=== PATIENT | male | born 1955 | race Hispanic/Latino ===

== ENCOUNTER 2023-12-10 22:04 | Emergency (ER) | payer OTHER ==
[2023-12-10] MEDS ORDERED: ACETAMINOPHEN 500 MG TAB ONE (23:47)
[2023-12-10 23:58] LABS: Absolute Basophils 0.1 K/uL (0-0.5); Absolute Eosinophils 0.1 K/uL (0-0.5); Absolute Lymphocytes (CBC) 1.7 K/uL (0.7-4.9); Absolute Monocytes 0.9 K/uL (0.1-1.3); Absolute Neutrophil 5.4 K/uL (1.8-8.0); Basophils % 0.7 % (0-1.3); Eosinophils % 1.5 % (0-4.4); Hematocrit 37.2 % (39.6-49.0); Lymphocytes % 20.5 % (15.3-44.8); MCH 29.7 pg (27.0-35.0); MCV 84.9 fL (80-100); MPV 8.6 fL (7.6-11.3); Monocytes % 10.9 % (3.3-12.3); Neutrophils % 66.4 % (41.7-73.7); Nucleated Red Blood Cells % 0.1 % (0-0); Platelets 132 thou/uL (152-406); RBC Red Blood Cell Count 4.38 M/uL (4.33-5.43)
[2023-12-11 00:03] LABS: SARS-CoV-2 Antigen CONTROL BLUE LINE VIS/BG OK; SARS-CoV-2 Antigen Rapid Res Positive (Negative)
[2023-12-11 00:13] LABS: Anion Gap 7.5 mEq/L (5.0-15.0); Potassium 3.5 mEq/L (3.5-5.1); Troponin High Sensitivity 13.2 pg/mL (<58.9)
--- NOTE | 2023-12-11 00:23 | ER ---
Nurse's Notes [facility] Name: Frank Cueto Age: 67 yrs Sex: Male : 1955 Arrival Date: 12/10/2023 Time: 22:04 Bed 18 Private MD: Diagnosis: SARS-associated coronavirus as the cause of diseases classified elsewhere Presentation: 12/09 23:08 Chief complaint: Patient states: c/o RUQ and LUQ pain. Denies n/v/d. Denies fever. me1 Coronavirus screen: Vaccine status: Patient reports receiving the 2nd dose of the covid vaccine. Ebola Screen: No symptoms or risks identified at this time. Initial Sepsis Screen: Does the patient meet any 2 criteria? No. Patient's initial sepsis screen is negative. Does the patient have a suspected source of infection? No. Patient's initial sepsis screen is negative. Risk Assessment: Do you want to hurt yourself or someone else? Patient reports no desire to harm self or others. Onset of symptoms was December 10, 2023. 23:08 Method Of Arrival: [place] [facility] Acuity: YOLANDA 3 me1 Triage Assessment: 23:10 General: Appears comfortable, well groomed, well developed, well nourished, Behavior is me1 calm, cooperative, appropriate for age. Pain: Complains of pain in right upper quadrant and left upper quadrant Pain does not radiate. Pain currently is 5 out of 10 on a pain scale. Quality of pain is described as sharp, Pain began 1 day ago. Is continuous. EENT: No signs and/or symptoms were reported regarding the EENT system. Neuro: Level of Consciousness is awake, alert, obeys commands, Oriented to person, place, time, situation, Appropriate for age. Cardiovascular: Patient's skin is warm and dry. Respiratory: Airway is patent Trachea midline Respiratory effort is even, unlabored, Respiratory pattern is regular, symmetrical. GI: Reports upper abdominal pain, Patient currently denies diarrhea, nausea, vomiting. : No signs and/or symptoms were reported regarding the genitourinary system. Derm: Skin is intact, is healthy with good turgor, Skin is pink, warm \T\ dry. Musculoskeletal: No signs and/or symptoms reported regarding the musculoskeletal system. Historical: - Allergies: 23:10 No Known Allergies; me1 - PMHx: 23:10 Diabetes mellitus; me1 - PSHx: 23:10 Left BKA; me1 - Immunization history:: Adult Immunizations up to date. - Infectious Disease History:: Denies. - Social history:: Smoking status: Patient reports the use of cigarette tobacco products, smokes one-half pack cigarettes per day. Screenin:12 [facility] ED Fall Risk Assessment (Adult) History of falling in the last 3 months, me1 including since admission No falls in past 3 months (0 pts) Confusion or Disorientation No (0 pts) Intoxicated or Sedated No (0 pts) Impaired Gait Yes (1 pt) Mobility Assist Device Used Yes (1 pt) Altered Elimination No (0 pt) Score/Fall Risk Level 0 - 2 = Low Risk Maintained a safe environment, Provided non-skid footwear, Hourly rounding (assess needs \T\ fall precautionary measures) done. Abuse screen: Denies threats or abuse. Nutritional screening: No deficits noted. Tuberculosis screening: No symptoms or risk factors identified. Assessment: 23:12 General: See triage assessment. . me1 08/04 00:00 General: Appears in no apparent distress. comfortable. Pain: Complains of pain in left jw7 upper quadrant and right upper quadrant Pain does not radiate. Pain currently is 2 out of 10 on a pain scale. Quality of pain is described as sharp, Pain began suddenly, Is continuous. Neuro: Level of Consciousness is awake, alert, obeys commands, Oriented to person, place, time, situation, Appropriate for age. Cardiovascular: Heart tones S1 S2 present Capillary refill < 3 seconds Clubbing of nail beds is absent JVD is absent Patient's skin is warm and dry. Respiratory: Airway is patent Trachea midline Respiratory effort is even, unlabored, Respiratory pattern is regular, symmetrical. GI: Abdomen is round non-distended, Bowel sounds present X 4 quads. Abd is soft and non tender X 4 quads. : No deficits noted. No signs and/or symptoms were reported regarding the genitourinary system. EENT: No deficits noted. No signs and/or symptoms were reported regarding the EENT system. Derm: Skin is intact, is healthy with good turgor, Skin is dry, Skin is normal, Skin temperature is warm. Musculoskeletal: Amputation of Below the left knee. Circulation, motion, and sensation intact. Range of motion: intact in all extremities. 01:00 Reassessment: Patient appears in no apparent distress at this time. No changes from 7 previously documented assessment. Patient and/or family updated on plan of care and expected duration. Pain level reassessed. Patient is alert, oriented x 3, equal unlabored respirations, skin warm/dry/pink. Vital Signs: 12/09 23:00 BP 126 / 65; Pulse 79; Resp 16; Pulse Ox 97% on R/A; me1 23:08 BP 132 / 71; Pulse 78; Resp 16; Temp 98.4; Pulse Ox 98% ; Weight 89.81 kg; Height 6 ft. me1 0 in. ; Pain 5/10; 23:30 BP 116 / 55; Pulse 74; Resp 16; Pulse Ox 96% on R/A; me1 12/10 00:00 BP 125 / 53; Pulse 77; Resp 17 S; Pulse Ox 96% on R/A; jw7 01:00 BP 131 / 67; Pulse 74; Resp 19 S; Pulse Ox 95% on R/A; jw7 01:37 BP 130 / 67; Pulse 74; Resp 16 S; Pulse Ox 95% on R/A; jw7 12/09 23:08 Body Mass Index 26.85 (89.81 kg, 182.88 cm) me1 23:08 Pain Scale: [place] [facility] Course: 12/09 22:14 Patient arrived in ED. sb4 22:14 [facility] sb4 22:14 Xander Mccormick MD is Attending Physician. sb4 23:08 Karina Mcfarland, KAREEM is Primary Nurse. me1 23:10 Triage completed. me1 23:10 Arm band placed on Patient placed in an exam room. me1 23:12 Patient has correct armband on for positive identification. Bed in low position. Call [facility] [place] in reach. Side rails up X2. Provided Education on: POC. Verbalized understanding. . Client placed on continuous cardiac and pulse oximetry monitoring. NIBP monitoring applied. satellite project site monitor on. Pulse ox on. NIBP on. 23:12 No provider procedures requiring assistance completed. me1 23:43 XRAY Chest (1 view) In Process Unspecified. EDMS 23:45 Initial lab(s) drawn, by me, sent to lab. COVID swab sent to lab. Inserted saline lock: me1 22 gauge in right antecubital area, using aseptic technique. 23:46 Basic Metabolic Panel Sent. me1 23:46 CBC with Diff Sent. me1 23:46 Troponin HS Sent. me1 23:46 SARS RAPID Sent. al1 12/10 00:07 EKG done, by ED staff, reviewed by Faye Rose PA-C. al1 01:38 IV discontinued, intact, bleeding controlled, No redness/swelling at site. Pressure jw7 dressing applied. Administered Medications: 12/09 23:50 Drug: Acetaminophen PO 1000 mg PO once Route: PO; al1 23:58 Follow up: Response: No adverse reaction al1 12/10 01:00 Follow up: Response: No adverse reaction; Marked relief of symptoms jw7 Medication: 12/09 23:12 VIS not applicable for this client. me1 Outcome: 12/10 00:22 Discharge ordered by . sb4 01:37 Discharged to alf. jw7 01:37 Condition: stable 01:37 Discharge instructions given to patient, alf, Instructed on discharge instructions, follow up and referral plans. Demonstrated understanding of instructions, follow-up care, 01:38 Patient left the ED. jw7 Signatures: Dispatcher [employer] EDMS Kelly Steinberg RN RN Faye Carmona PA-C PA-C sb4 Eddleman, Michelle, RN RN me1
--- NOTE | 2023-12-11 00:23 | EDPHYS ---
Physician Documentation [facility] Name: Frank Cueto Age: 67 yrs Sex: Male : 1955 Arrival Date: 12/10/2023 Time: 22:04 Bed 18 Private MD: ED Physician Xander Mccormick HPI: 12/09 23:09 This 67 yrs old Male presents to ER via Unassigned with complaints of chest sb4 pain. 23:09 patient reports pain under his lower rib cage for 2 days now. denies any alleviating or sb4 aggravating factors. denies any injury or trauma. denies any cough or sob. he asked the correction to see a doctor and one was not available so he called an ambulance. Historical: - Allergies: 23:10 No Known Allergies; me1 - PMHx: 23:10 Diabetes mellitus; me1 - PSHx: 23:10 Left BKA; me1 - Immunization history:: Adult Immunizations up to date. - Infectious Disease History:: Denies. - Social history:: Smoking status: Patient reports the use of cigarette tobacco products, smokes one-half pack cigarettes per day. ROS: 23:09 Constitutional: Negative for fever, chills, and weight loss, sb4 23:09 Cardiovascular: Positive for chest pain, 23:09 All other systems are negative, Exam: 23:09 Constitutional: This is a well developed, well nourished patient who is awake, alert, sb4 and in no acute distress. Head/Face: Normocephalic, atraumatic. Eyes: Extra-ocular motions intact. Periorbital areas with no swelling, redness, or edema. ENT: Mucous membranes moist. Cardiovascular: Regular rate and rhythm with a normal S1 and S2. Respiratory: Lungs have equal breath sounds bilaterally, clear to auscultation and percussion. No rales, rhonchi or wheezes noted. No increased work of breathing, no retractions or nasal flaring. Abdomen/GI: Soft, non-tender, no distension. Skin: Warm, dry with normal turgor. Normal color with no rashes, no lesions, and no evidence of cellulitis. Vital Signs: 23:00 BP 126 / 65; Pulse 79; Resp 16; Pulse Ox 97% on R/A; me1 23:08 BP 132 / 71; Pulse 78; Resp 16; Temp 98.4; Pulse Ox 98% ; Weight 89.81 kg; Height 6 ft. me1 0 in. ; Pain 5/10; 23:30 BP 116 / 55; Pulse 74; Resp 16; Pulse Ox 96% on R/A; me1 12/10 00:00 BP 125 / 53; Pulse 77; Resp 17 S; Pulse Ox 96% on R/A; jw7 01:00 BP 131 / 67; Pulse 74; Resp 19 S; Pulse Ox 95% on R/A; jw7 01:37 BP 130 / 67; Pulse 74; Resp 16 S; Pulse Ox 95% on R/A; jw7 12/09 23:08 Body Mass Index 26.85 (89.81 kg, 182.88 cm) vt1 23:08 Pain Scale: Adult me1 MDM: 12/09 22:15 Patient medically screened. [facility] 12/10 00:22 Data reviewed: vital signs, nurses notes, EMS record, lab test result(s), EKG, sb4 radiologic studies, and as a result, I will discharge patient. Counseling: I had a detailed discussion with the patient and/or guardian regarding the historical points, exam findings, and any diagnostic results supporting the discharge/admit diagnosis, lab results, radiology results, to return to the emergency department if symptoms worsen or persist or if there are any questions or concerns that arise at home. 12/09 22:14 Order name: SARS RAPID; Complete Time: 00:04 4 12/09 23:08 Order name: Basic Metabolic Panel; Complete Time: 00:16 4 12/09 23:08 Order name: CBC with Diff; Complete Time: 00:02 sb4 12/09 23:08 Order name: Troponin HS; Complete Time: 00:16 4 12/09 23:08 Order name: XRAY Chest (1 view) 4 12/09 23:08 Order name: Cardiac monitoring; Complete Time: 00:07 4 12/09 23:08 Order name: EKG - Nurse/Tech; Complete Time: 00:07 sb4 12/09 23:08 Order name: IV Saline Lock; Complete Time: 23:46 4 12/09 23:08 Order name: Labs collected and sent; Complete Time: 23:46 4 12/09 23:08 Order name: O2 Per Protocol; Complete Time: 23:14 sb4 12/09 23:08 Order name: O2 Sat Monitoring; Complete Time: 23:14 sb4 EC:08 Rate is 72 beats/min. Rhythm is regular, Normal Sinus Rhythm. [place] interval is normal at sb4 182 msec. QRS interval is normal at 104 msec. QT interval is normal at 398 msec. No Q waves. No ST changes noted. Clinical impression: No evidence of ischemia. Interpreted by me. Reviewed by me. Administered Medications: 12/09 23:50 Drug: Acetaminophen PO 1000 mg PO once Route: PO; [facility] [place] 23:58 Follow up: Response: No adverse reaction vt1 12/10 01:00 Follow up: Response: No adverse reaction; Marked relief of symptoms jw7 Disposition: 04:40 Co-signature as Attending Physician, Xander Mccormick MD I agree with the assessment sp4 and plan of care. I reviewed the patient's care provided by the Advanced Practice Provider and agree with the diagnosis and treatment plan. Disposition Summary: 12/11/23 00:22 Discharge Ordered Notes: Location: Home sb4 Problem: new sb4 Symptoms: have improved sb4 Condition: Stable sb4 Diagnosis - SARS-associated coronavirus as the cause of diseases classified elsewhere sb4 Followup: sb4 - With: Emergency Department - When: As needed - Reason: Trouble breathing, Worsening of condition Discharge Instructions: - Discharge Summary Sheet sb4 - 10 Things You Can Do to Manage Your COVID-19 Symptoms at Home - [facility] (11/21/2020) sb4 Forms: - Patient Portal Instructions sb4 - Leadership Thank You Letter sb4 Signatures: Dispatcher [employer] Faye Matta PA-C PA-C sb4 Xander Mccormick MD MD sp4 Karina Mcfarland RN RN me1 Kelly Steinberg RN jw7
[2023-12-11 06:04] VITALS: TEMP 98.4
[2023-12-11 06:11] VITALS: O2SAT 95
[2023-12-11 06:12] VITALS: BP 130/67
--- NOTE | 2023-12-12 13:23 | RAD REPORT ---
EXAM DESCRIPTION: RAD - Chest Single View - 12/10/2023 11:41 pm CLINICAL HISTORY: 67 years, Male, CHEST PAIN COMPARISON: None FINDINGS: 1 views of the chest was obtained. No prior films are available at this time for compari son. There is normal lung volume. Mediastinum: The cardiomediastinal silhouette appears normal in size and shape. Lungs: No areas of consolidations or masses are identified. Heart: The heart is normal in size. Thoracic aorta: The thoracic aorta demonstrate to be mildly tortuous with intimal consultation. Pulmonary vasculature: The pulmonary vasculature is normal in distribution. Pleura: The costophrenic angles demonstrate to be sharp. Osseous structures: The bony structures demonstrate to be within normal limits. Other: None. IMPRESSION: No acute cardiopulmonary disease is seen Electronically signed by: Marty Lloyd MD 12/10/2023 11:50 PM CDT RP Due to temporary technical issues with the PACS/Fluency reporting system, reports are being signed by the in house radiologist without review as a courtesy to ensure prompt reporting. The interpreting r adiologist is fully responsible for the content of the report.
--- NOTE | 2023-12-12 17:01 | EKG ---
Test Date: 2023-12-11 Test Time: 00:04:18 Manufacturing Test Engineer: MEASUREMENT RESULTS: Intervals: Rate: 72 NH: 182 QRSD: 104 QT: 398 QTc: 435 [place]: P: 58 NH: 182 QRS: 95 T: 86 INTERPRETIVE STATEMENTS: Normal sinus rhythm T wave abnormality, consider lateral ischemia Abnormal ECG No previous ECG available for comparison Electronically Signed On 12-12-23 16:57:24 CDT by Howard Isbell
== END 2023-12-11 01:38 | disposition home or self-care (01) ==
LOC: ER 22:04
DX: U07.1 COVID-19 (principal)
CPT/HCPCS: 36415; 71045; 80048; 84484; 85025; 87811; 93005; 99285

== ENCOUNTER 2024-01-01 07:54 | Emergency (ER) | payer OTHER ==
[2024-01-01] MEDS ORDERED: NA CHLORIDE 0.9% 500 ML ONE (08:17)
[2024-01-01 09:09] LABS: Absolute Lymphocytes (CBC) 0.6 K/uL (0.7-4.9); Absolute Monocytes 0.8 K/uL (0.1-1.3); Absolute Neutrophil 6.1 K/uL (1.8-8.0); Basophils % 0.4 % (0-1.3); Eosinophils % 0.2 % (0-4.4); Hematocrit 36.5 % (39.6-49.0); Hemoglobin 12.5 g/dL (13.6-17.9); Lymphocytes % 8.1 % (15.3-44.8); MCH 29.3 pg (27.0-35.0); MCHC 34.3 g/dL (32.0-36.0); MCV 85.4 fL (80-100); MPV 8.8 fL (7.6-11.3); Monocytes % 10.4 % (3.3-12.3); Neutrophils % 80.9 % (41.7-73.7); Nucleated Red Blood Cells % 0.1 % (0-0); Platelets 159 thou/uL (152-406); RBC Red Blood Cell Count 4.27 M/uL (4.33-5.43); Red Cell Distribution Width 14.6 % (12.1-15.2)
[2024-01-01 09:19] LABS: Albumin/Globulin Ratio 0.7 (1.1-1.8); Anion Gap 11.7 mEq/L (5.0-15.0); Bilirubin Total 1.2 mg/dL (0.2-1.0); Globulin 4.2 g/dL (2.3-3.5); Potassium 3.7 mEq/L (3.5-5.1); Protein, Total 7.2 g/dL (6.4-8.2); Troponin High Sensitivity 20.3 pg/mL (<58.9)
[2024-01-01 11:51] LABS: Sqamous Epithelial <5 /HPF (None Seen); Transitional Epithelial <5 /HPF (None Seen); Urine Bacteria 20-50 /HPF (<20); Urine Bilirubin NEGATIVE (Negative); Urine Blood 2+ (Negative); Urine Clarity Extremely Turbid (Clear); Urine Color Yellow (Yellow); Urine Culture Reflex Order REFLEXED; Urine Glucose TRACE (Negative); Urine Ketones NEGATIVE (Negative); Urine Microscopic Reflex YN ORDER UMIC; Urine Mucus Slight /HPF (None Seen); Urine Nitrite NEGATIVE (Negative); Urine Protein 1+ (Negative); Urine Urobilinogen 1+ (Normal); Urine WBC >50 /HPF (<5); Urine WBC Clump Occasional /HPF (None Seen)
--- NOTE | 2024-01-01 12:22 | EDPHYS ---
Physician Documentation [facility] Name: Frank Cueto Age: 68 yrs Sex: Male : 1955 Arrival Date: 01/01/2024 Time: 07:54 Bed 18 Private MD: ED Physician Keya Rg HPI: 12/31 08:28 This 68 yrs old Male presents to ER via EMS with complaints of Nausea/Vomiting.sd2 08:28 68-year-old male presents via EMS with a chief complaint of foul-smelling urine and sd2 concern for UTI from his half-way. They report he has a history of recurrent UTIs. He also had 1 episode of nausea and vomiting this morning. He reports that he has had some very mild upper abdominal pain that has been ongoing since yesterday as well. He denies any fever, diarrhea or any other concerning symptoms at this time.. Historical: - Allergies: 07:57 No Known Allergies; bp - PMHx: 07:57 diabetes mellitus; bp - PSHx: 07:57 Left BKA; bp - Immunization history:: Adult Immunizations up to date. - Infectious Disease History:: Denies. - Social history:: Smoking status: Patient denies any tobacco usage or history of. ROS: 08:28 Constitutional: Negative for fever, chills, and weight loss, Eyes: Negative for injury, sd2 pain, redness, and discharge, Cardiovascular: Negative for chest pain, palpitations, and edema, Respiratory: Negative for shortness of breath, cough, wheezing. 08:28 : Negative for dysuria, frequency or hematuria. MS/Extremity: Negative for injury and deformity, Skin: Negative for injury, rash, and discoloration, Neuro: Negative for headache, numbness and tingling. 08:28 Abdomen/GI: Positive for abdominal pain, nausea and vomiting, Negative for diarrhea, Exam: 08:28 Constitutional: This is a well developed, well nourished patient who is awake, alert, sd2 and in no acute distress. Head/Face: Normocephalic, atraumatic. Eyes: EOMI, normal conjunctiva bilaterally Chest/axilla: Normal chest wall appearance and motion. Nontender with no deformity. Cardiovascular: Regular rate and rhythm with a normal S1 and S2. No gallops, murmurs, or rubs. 2+ distal pulses. Respiratory: Lungs have equal breath sounds bilaterally, clear to auscultation and percussion. No rales, rhonchi or wheezes noted. No increased work of breathing, no retractions or nasal flaring. Abdomen/GI: Soft, non-tender, with normal bowel sounds. No guarding or rebound. No evidence of tenderness throughout. Skin: Warm, dry with normal turgor. Normal color with no rashes, no lesions, and no evidence of cellulitis. MS/ Extremity: Pulses equal, no cyanosis. Neurovascular intact. Full, normal range of motion. Psych: Awake, alert, with orientation to person, place and time. Behavior, mood, and affect are within normal limits. 08:28 ECG was reviewed by the Attending Physician. Sinus rhythm, rate 83, occasional PVCs sd2 noted, no STEMI criteria Vital Signs: 07:56 BP 154 / 79; Pulse 81; Resp 16; Temp 98.9; Pulse Ox 98% ; bp 10:00 BP 150 / 69; Pulse 80; Resp 16; Pulse Ox 99% ; bp 12:00 BP 170 / 87; Pulse 103; Resp 16; Pulse Ox 98% on R/A; me1 13:02 BP 158 / 78; Pulse 88; Resp 17; Temp 98.1; Pulse Ox 100% ; me1 MDM: 08:10 Patient medically screened. sd2 08:28 Differential diagnosis: Nonspecific abd pain, gastritis, cholecystitis, pancreatitis, sd2 appendicitis, diverticulitis, viral gastroenteritis, gastroenteritis, UTI among others. Data reviewed: vital signs, nurses notes, EMS record, lab test result(s), EKG. Care significantly affected by the following chronic conditions: Diabetes. 12:21 Counseling: I had a detailed discussion with the patient and/or guardian regarding the sd2 historical points, exam findings, and any diagnostic results supporting the discharge/admit diagnosis, lab results, the need for outpatient follow up, to return to the emergency department if symptoms worsen or persist or if there are any questions or concerns that arise at home. ED course: Labs consistent with UTI. Pt requesting discharge back to his facility. Rocephin given and pt discharged on cefdinir. Verbalizes understanding of strict return precautions. . 12/31 08:11 Order name: CBC with Diff; Complete Time: 10:23 sd2 0825 08:11 Order name: CMP; Complete Time: 10:23 sd12/31 08:11 Order name: Lipase; Complete Time: 10:23 sd12/31 08:11 Order name: Troponin High Sensitivity; Complete Time: 10:23 sd12/31 08:11 Order name: Urinalysis w/ reflexes; Complete Time: 12:20 sd12/31 11:55 Order name: Urine Culture EDDC 12/31 08:11 Order name: EKG - Nurse/Tech; Complete Time: 08:23 sd Administered Medications: 08:38 Drug: NS 0.9% IV 500 ml IV at bolus once Route: IV; Rate: bolus; Site: right forearm; bp 12:46 Follow up: Response: No adverse reaction; IV Status: Completed infusion; IV Intake: me1 1000ml 12:42 Drug: Rocephin IV 1 grams IV at bolus once; Given slow IV push per pharmacy me1 instructions Route: IV; Rate: bolus; Site: right antecubital; 12:46 Follow up: Response: No adverse reaction; IV Status: Completed infusion me1 12:58 Drug: Ondansetron IVP 4 mg IVP once; over 2 minutes Route: IVP; Site: right antecubital;me1 12:58 Follow up: Response: No adverse reaction; Nausea is decreased me1 Disposition Summary: 01/01/24 12:22 Discharge Ordered Notes: Location: Home sd2 Problem: new sd2 Symptoms: have improved sd2 Condition: Stable sd2 Diagnosis - UTI/ Urinary tract infection, site not specified sd2 - Nausea with vomiting, unspecified sd2 Followup: sd2 - With: Private Physician - When: 2 - 3 days - Reason: Recheck today's complaints, Continuance of care, Re-evaluation by your physician Discharge Instructions: - Discharge Summary Sheet sd2 - Nausea and Vomiting, Adult sd2 - Urinary Tract Infection, Adult sd2 Forms: - Medication Reconciliation Form sd2 - Antibiotic Education sd2 - Prescription Opioid Use sd2 - Patient Portal Instructions sd2 - Leadership Thank You Letter sd2 Prescriptions: - cefdinir 300 mg Oral capsule - take 1 capsule ORAL route 2 times per day for 10 days; 20 capsule; Refills: 0, sd2 Product Selection Permitted Signatures: Dispatcher [employer] Dakota Burdick, RN RN bp Keya Rg MD MD sd2 Karina Mcfarland RN RN me1 Corrections: (The following items were deleted from the chart) 08: 08:11 CBC+H.LAB.BRZ ordered. EDMS EDMS 08: 08:11 COMPREHENSIVE METABOLIC PANEL+C.LAB.BRZ ordered. EDMS EDMS 08: 08:11 LIPASE+C.LAB.BRZ ordered. EDMS EDMS 08: 08:11 Troponin High Sensitivity+C.LAB.BRZ ordered. EDMS EDMS 08:11 08:11 Urinalysis+U.LAB.BRZ ordered. EDMS EDMS
--- NOTE | 2024-01-01 12:22 | ER ---
Nurse's Notes [facility] Name: Frank Cueto Age: 68 yrs Sex: Male : 1955 Arrival Date: 01/01/2024 Time: 07:54 Bed 18 Private MD: Diagnosis: UTI/ Urinary tract infection, site not specified;Nausea with vomiting, unspecified Presentation: 12/31 07:56 Chief complaint: EMS states: MALAISE x2 DAYS, N/V TODAY. Coronavirus screen: At this bp time, the client does not indicate any symptoms associated with coronavirus-19. Ebola Screen: No symptoms or risks identified at this time. Initial Sepsis Screen: Does the patient meet any 2 criteria? No. Patient's initial sepsis screen is negative. Does the patient have a suspected source of infection? No. Patient's initial sepsis screen is negative. Risk Assessment: Do you want to hurt yourself or someone else? Patient reports no desire to harm self or others. Onset of symptoms is unknown. Care prior to arrival: Glucose check: 256. 07:56 Method Of Arrival: EMS: [facility] bp 07:56 Acuity: YOLANDA 3 bp Triage Assessment: 07:57 General: Appears in no apparent distress. Behavior is calm, cooperative, appropriate bp for age. Pain: Complains of pain in abdomen. EENT: No deficits noted. Neuro: No deficits noted. Cardiovascular: No deficits noted. Respiratory: No deficits noted. GI: Reports nausea. : No signs and/or symptoms were reported regarding the genitourinary system. Derm: No deficits noted. Musculoskeletal: Amputation of left leg. Historical: - Allergies: 07:57 No Known Allergies; bp - PMHx: 07:57 diabetes mellitus; bp - PSHx: 07:57 Left BKA; bp - Immunization history:: Adult Immunizations up to date. - Infectious Disease History:: Denies. - Social history:: Smoking status: Patient denies any tobacco usage or history of. Screenin:58 [facility] ED Fall Risk Assessment (Adult) History of falling in the last 3 months, bp including since admission No falls in past 3 months (0 pts) Confusion or Disorientation No (0 pts) Intoxicated or Sedated No (0 pts) Impaired Gait Yes (1 pt) Mobility Assist Device Used Yes (1 pt) Altered Elimination No (0 pt) Score/Fall Risk Level 0 - 2 = Low Risk. Abuse screen: Denies threats or abuse. Denies injuries from another. Nutritional screening: No deficits noted. Tuberculosis screening: No symptoms or risk factors identified. Assessment: 08:00 General: Appears in no apparent distress. Behavior is calm, cooperative. GI: Abdomen is bp non-distended. 10:00 Reassessment: Patient appears in no apparent distress at this time. Patient is alert, bp oriented x 3, equal unlabored respirations, skin warm/dry/pink. 12:00 General: Appears ill, well developed, well nourished, Behavior is calm, cooperative, me1 appropriate for age, Reports malaise x 2 days, n/v. 12:00 Pain: Denies pain. Neuro: Level of Consciousness is awake, alert, obeys commands, me1 Oriented to person, place, time, situation, Appropriate for age. Cardiovascular: Patient's skin is warm and dry. Respiratory: Respiratory effort is even, unlabored, Respiratory pattern is regular, symmetrical. GI: No signs and/or symptoms were reported involving the gastrointestinal system. GI: Abdomen is non-distended. : Reports incontinence. EENT: No signs and/or symptoms were reported regarding the EENT system. Derm: Skin is intact, is healthy with good turgor, Skin is pink, warm \T\ dry. Musculoskeletal: Amputation of left leg. 12:41 General: Called report to Дмитрий at [facility]. He is setting up transportation with [address] [facility]. . Vital Signs: 07:56 BP 154 / 79; Pulse 81; Resp 16; Temp 98.9; Pulse Ox 98% ; bp 10:00 BP 150 / 69; Pulse 80; Resp 16; Pulse Ox 99% ; bp 12:00 BP 170 / 87; Pulse 103; Resp 16; Pulse Ox 98% on R/A; me1 13:02 BP 158 / 78; Pulse 88; Resp 17; Temp 98.1; Pulse Ox 100% ; ms1 ED Course: 07:56 Patient arrived in ED. bp 07:57 Triage completed. bp 07:57 Arm band placed on. bp 07:58 Patient has correct armband on for positive identification. bp 08:10 Keya Rg MD is Attending Physician. sd2 08:13 Dakota Valero, RN is Primary Nurse. bp 08:23 EKG done, by ED staff, reviewed by Keya Rg MD. em1 08:38 Initial lab(s) drawn, by me, sent to lab. Inserted saline lock: 22 gauge in right bp forearm, using aseptic technique. Blood collected. 12:12 Cleaned of incontinence. Linen changed. me1 13:01 Provided Education on: POC. Verbalized understanding.. me1 13:01 IV discontinued, intact, bleeding controlled, No redness/swelling at site. Pressure me1 dressing applied. 13:02 No provider procedures requiring assistance completed. me1 Administered Medications: 08:38 Drug: NS 0.9% IV 500 ml IV at bolus once Route: IV; Rate: bolus; Site: right forearm; bp 12:46 Follow up: Response: No adverse reaction; IV Status: Completed infusion; IV Intake: me1 1000ml 12:42 Drug: Rocephin IV 1 grams IV at bolus once; Given slow IV push per pharmacy me1 instructions Route: IV; Rate: bolus; Site: right antecubital; 12:46 Follow up: Response: No adverse reaction; IV Status: Completed infusion me1 12:58 Drug: Ondansetron IVP 4 mg IVP once; over 2 minutes Route: IVP; Site: right antecubital;me1 12:58 Follow up: Response: No adverse reaction; Nausea is decreased me1 Medication: 13:01 VIS not applicable for this client. me1 Intake: 12:46 IV: 1000ml; Total: 1000ml. me1 Outcome: 12:22 Discharge ordered by sd2 13:14 [facility] to [facility]. Report called to Дмитрий [facility] 13:14 Condition: stable 13:14 Discharge instructions given to patient, [facility], Instructed on discharge instructions, follow up and referral plans. medication usage, Demonstrated understanding of instructions, follow-up care, medications, Prescriptions given X 1, 13:15 Patient left the ED. me1 Addendum: 01/12/2024 16:21 Addendum: Culture Results: Positive urine culture. Bacteria is resistant to, has a a5 intermediate sensitivity, or is not tested against prescribed antibiotics. Report given to AVELINA for further evaluation and then to director of retail merchandising for follow up with patient. Phone call Attempt #1 no answer, unable to leave voice mail. Signatures: Ramon Moreno em1 Nkechi Saravia, RN RN aa5 Dakota Valero RN RN bp Keya Rg MD MD sd2 Karina Mcfarland RN RN me1 Corrections: (The following items were deleted from the chart) 12/31 12:52 12:00 General: Appears ill, well developed, well nourished, Behavior is calm, me1 cooperative, appropriate for age, me1
[2024-01-01] MEDS ORDERED: CEFTRIAXONE 1000 MG/VIAL ONE (12:38)
[2024-01-01] MEDS ORDERED: ONDANSETRON 4 MG/2 ML VIAL ONE (12:55)
[2024-01-01 13:40] VITALS: BP 158/78; TEMP 98.1; O2SAT 100
--- NOTE | 2024-01-03 12:45 | EKG ---
Test Date: 2024-01-01 Test Time: 08:20:38 [employer]: LILLY MEASUREMENT RESULTS: Intervals: Rate: 83 NM: 156 QRSD: 96 QT: 384 QTc: 451 [place]: P: 39 NM: 156 QRS: 59 T: 85 INTERPRETIVE STATEMENTS: Sinus rhythm with occasional premature ventricular complexes Otherwise normal ECG Compared to ECG 12/11/2023 00:04:18 Ventricular premature complex(es) now present T-wave abnormality no longer present Possible ischemia no longer present Electronically Signed On 01-03-24 12:42:53 CDT by Leonardo Diaz
== END 2024-01-01 13:15 | disposition home or self-care (01) ==
LOC: ER 07:54
DX: N39.0 Urinary tract infection, site not specified (principal); E11.9 Type 2 diabetes mellitus without complications
CPT/HCPCS: 96361; 93005; 87088; 85025; 81001; 87086; 36415; 84484; 83690; 80053; 96375; 96374; 99285; J2405; J7040; J0696; 87077; 87186

== ENCOUNTER 2024-07-28 11:42 | Emergency (ER) | payer OTHER ==
[2024-07-28 12:53] LABS: Absolute Eosinophils 0.1 K/uL (0-0.5); Absolute Lymphocytes (CBC) 1.3 K/uL (0.7-4.9); Absolute Monocytes 0.5 K/uL (0.1-1.3); Absolute Neutrophil 3.3 K/uL (1.8-8.0); Basophils % 0.9 % (0-1.3); Eosinophils % 2.3 % (0-4.4); Hematocrit 36.6 % (39.6-49.0); Hemoglobin 12.9 g/dL (13.6-17.9); Lymphocytes % 24.7 % (15.3-44.8); MCH 29.6 pg (27.0-35.0); MCHC 35.3 g/dL (32.0-36.0); MCV 83.7 fL (80-100); MPV 8.7 fL (7.6-11.3); Monocytes % 10.2 % (3.3-12.3); Neutrophils % 61.9 % (41.7-73.7); Nucleated Red Blood Cells % 0.1 % (0-0); Platelets 141 thou/uL (152-406); RBC Red Blood Cell Count 4.37 M/uL (4.33-5.43)
[2024-07-28 13:00] LABS: PT Prothrombin Time 12.8 SECONDS (10-13.0); PTT, Activated Partial Thromb 32.9 SECONDS (27.2-37.4); Protime INR 1.13
[2024-07-28 13:13] LABS: Albumin 2.8 g/dL (3.4-5.0); Albumin/Globulin Ratio 0.8 (1.1-1.8); Anion Gap 5.5 mEq/L (5.0-15.0); Bilirubin Direct 0.2 mg/dL (0-0.2); Bilirubin Indirect, Calculated 0.2 mg/dL (0.2-0.8); Bilirubin Total 0.4 mg/dL (0.2-1.0); Globulin 3.7 g/dL (2.3-3.5); Potassium 3.5 mEq/L (3.5-5.1); Protein, Total 6.5 g/dL (6.4-8.2); Troponin High Sensitivity 13.7 pg/mL (<58.9)
--- NOTE | 2024-07-28 13:43 | RAD REPORT ---
Procedure: Chest Single View HISTORY: Strokelike symptoms COMPARISON: 2023 FINDINGS: The lungs appear clear of acute infiltrate. No significant pleural effusion noted. The heart is mildly enlarged. . IMPRESSION: No acute abnormality is displayed.
--- NOTE | 2024-07-28 13:58 | RAD REPORT ---
EXAM: CT brain without contrast HISTORY: Left ptosis COMPARISON: None TECHNIQUE: Multiple contiguous axial images were obtained and a CT of the brain without contrast.. Sagittal and coronal reconstruction performed. Automated exposure control, adjustment of the mA and/or kV according to patient size, and/or iterative reconstruction. Unless otherwise specified, incidental f indings do not require dedicated imaging follow-up FINDINGS: An intracranial bleed is not seen No gross intraorbital abnormality. Ventricles are normal caliber No extra-axial fluid collection noted No significant hypodensity within the brain No fluid within the visualized sinuses or mastoids noted. IMPRESSION: No acute intracranial abnormality noted. If the patient continues to have symptoms to suggest an acute intracranial abnormality then MRI of th e brain would be recommended.
--- NOTE | 2024-07-28 15:29 | RAD REPORT ---
EXAMINATION: CTA HEAD CLINICAL INDICATION: Left ptosis. Stroke like symptoms. TECHNIQUE: Axial CT images were obtained through the head after 100 cc Isovue-370 intravenous contras t utilizing angiographic protocol with 3D post-processing (maximum intensity projection images, volume rendered images and/or shaded surface rendered images). One or more of the following dose red uction techniques were used: Automated exposure control, adjustment of the mA and/or kV according to patient size, and/or iterative reconstruction. Unless otherwise specified, incidental findings do not require dedicated imaging follow-up. COMPARISON: None FINDINGS: Distal internal carotid, basilar, anterior cerebral, middle cerebral and posterior cerebral arteries do not demonstrate a significant stenosis An aneurysm not noted. No large vessel occlusion IMPRESSION: No acute vascular abnormality displayed
--- NOTE | 2024-07-28 15:30 | RAD REPORT ---
EXAMINATION: Neck Angio CLINICAL INDICATION: Left ptosis. Strokelike symptoms TECHNIQUE: Axial CT images were obtained from the aortic arch to the skull base after intravenous adm inistration of 100 cc Isovue-370 utilizing angiographic protocol. Multiplanar reformats, as well as 3D post-processing (maximum intensity projection images, volume rendered images and/or shaded surface rendered images) were generated and reviewed. One or more of the following dose reduction techniques were used: Automated exposure control, adjustment of the mA and/or kV according to patient size, and/or iterative reconstruction. Unless otherwise specified, incidental findings do not require dedicated imaging follow-up. COMPARISON: No prior exam. FINDINGS: The visualized aortic arch and great vessels do not demonstrate a significant abnormality Mild plaque common carotid, internal carotid and external carotid arteries bilaterally. Vertebral arteries unremarkable. No significant stenosis noted. A dissection is not seen. Methods for NASCET criteria: Mild stenosis, 0% to 49%; Moderate stenosis 50% to 69%; Severe stenosis, 70% to 99% IMPRESSION: No acute vascular abnormality displayed
--- NOTE | 2024-07-28 15:35 | EDPHYS ---
Physician Documentation [facility] Name: Frank Cueto Age: 68 yrs Sex: Male : 1955 Arrival Date: 07/28/2024 Time: 11:42 Bed 4 Private MD: ED Physician Elias Cunningham HPI: 07/28 12:34 This 68 yrs old Male presents to ER via EMS with complaints of Eye Problem. sp3 12:34 68-year-old male with history of diabetes presents via EMS for left ptosis for sp3 approximately 1 week. Patient states that his eyes been slowly getting harder and harder to open up. He denies any significant changes in vision but when his eye is open manually he states that his vision is a little bit blurry but he denies any other weakness, forehead weakness, other facial weakness, and ability to chew or swallow, speech changes, memory loss, headache, neck pain, chest pain, shortness breath, abdominal pain, nausea, vomiting, diarrhea, rash, or any other signs or symptoms on ROS at this time.. Historical: - Allergies: 11:47 No Known Allergies; hb - PMHx: 11:47 diabetes mellitus; hb - PSHx: 11:47 Left BKA; hb - Immunization history:: Adult Immunizations up to date. - Infectious Disease History:: Denies. - Social history:: Smoking status: Patient/guardian denies using tobacco. ROS: 12:36 Constitutional: Negative for fever, chills, and weight loss, ENT: Negative for injury, sp3 pain, and discharge, Neck: Negative for injury, pain, and swelling, Cardiovascular: Negative for chest pain, palpitations, and edema, Respiratory: Negative for shortness of breath, cough, wheezing, and pleuritic chest pain, Abdomen/GI: Negative for abdominal pain, nausea, vomiting, diarrhea, and constipation, Back: Negative for injury and pain, MS/Extremity: Negative for injury and deformity, Skin: Negative for injury, rash, and discoloration, Psych: Negative for depression, anxiety, suicide ideation, homicidal ideation, and hallucinations, Allergy/Immunology: Negative for hives, rash, and allergies, Endocrine: Negative for neck swelling, polydipsia, polyuria, polyphagia, and marked weight changes, Hematologic/Lymphatic: Negative for swollen nodes, abnormal bleeding, and unusual bruising, 12:36 All other systems are negative, Exam: 12:38 Constitutional: This is a well developed, well nourished patient who is awake, alert, sp3 and in no acute distress. Neck: Trachea midline, no thyromegaly or masses palpated, and no cervical lymphadenopathy. Supple, full range of motion without nuchal rigidity, or vertebral point tenderness. No Meningismus. Chest/axilla: Normal chest wall appearance and motion. Nontender with no deformity. No lesions are appreciated. Cardiovascular: Regular rate and rhythm with a normal S1 and S2. No gallops, murmurs, or rubs. Normal PMI, no JVD. No pulse deficits. Respiratory: Lungs have equal breath sounds bilaterally, clear to auscultation and percussion. No rales, rhonchi or wheezes noted. No increased work of breathing, no retractions or nasal flaring. Abdomen/GI: Soft, non-tender, with normal bowel sounds. No distension or tympany. No guarding or rebound. No evidence of tenderness throughout. Back: No spinal tenderness. No costovertebral tenderness. Full range of motion. Skin: Warm, dry with normal turgor. Normal color with no rashes, no lesions, and no evidence of cellulitis. MS/ Extremity: Pulses equal, no cyanosis. Neurovascular intact. Full, normal range of motion. Psych: Awake, alert, with orientation to person, place and time. Behavior, mood, and affect are within normal limits. 12:38 Eyes: Left eye subjectively blurry vision. Pupils equal, round and reactive to light bilaterally. Anterior chamber is clear with no hyphema present. Conjunctiva and remainder of eye also normal. Mild mucus film present due to eye being persistently closed. Patient is able to squint however full ptosis is present with inability to open eye. Levator palpebrae a muscle with no function.. 14:18 ECG was reviewed by the Attending Physician. EKG demonstrates normal sinus rhythm at 60 sp3 bpm with normal intervals, normal QRS, normal axis, nonspecific ST's ST changes without evidence of acute ischemia. Vital Signs: 11:45 BP 157 / 77; Pulse 65; Resp 16; Temp 98.1(O); Pulse Ox 100% on R/A; Pain 2/10; hb 12:55 BP 147 / 93; Pulse 61; Resp 15; Pulse Ox 100% on R/A; hb 16:15 BP 151 / 89; Pulse 65; Resp 16; Pulse Ox 97% ; bp 11:45 Pain Scale: Adult hb MDM: 11:55 Medical Screening Exam initiated 3 12:39 Data reviewed: vital signs, nurses notes, lab test result(s), EKG, radiologic studies. sp3 ED course: 68-year-old male with diabetes with isolated ptosis for several weeks. Differential diagnosis includes peripheral muscle/nerve issue, intracranial pathology, TIA/CVA spectrum, among others. Workup will include CT scan of the head, CT angiogram of head and neck, general labs, EKG and general supportive care. Disposition pending workup and patient course.. 15:32 ED course: Full workup negative including CT angiograms. Patient with likely peripheral sp3 ptosis. Will have patient follow-up with neurology and ophthalmology.. 07/28 11:57 Order name: Basic Metabolic Panel; Complete Time: 13:20 07/28 11:57 Order name: CBC with Diff; Complete Time: 13:20 07/28 11:57 Order name: Hepatic Function; Complete Time: 13:20 07/28 11:57 Order name: High Sensitivity Troponin; Complete Time: 13:20 07/28 11:57 Order name: Magnesium; Complete Time: 13:20 07/28 11:57 Order name: Protime (+inr); Complete Time: 13:20 3 07/28 11:57 Order name: Ptt, Activated; Complete Time: 13:20 3 07/28 11:57 Order name: CT Head Angio; Complete Time: 15:32 07/28 11:57 Order name: CT Neck Angio; Complete Time: 15:32 07/28 11:57 Order name: Stroke CXR 1 View; Complete Time: 13:45 07/28 11:57 Order name: CT Head Brain wo Cont; Complete Time: 14:00 07/28 11:57 Order name: Cardiac monitoring; Complete Time: 12:37 3 07/28 11:57 Order name: EKG - Nurse/Tech; Complete Time: 14:07 [facility] 07/28 11:57 Order name: IV Saline Lock; Complete Time: 12:42 3 07/28 11:57 Order name: Labs collected and sent; Complete Time: 12:42 sp3 07/28 11:57 Order name: NPO; Complete Time: 12:37 sp3 07/28 11:57 Order name: O2 Per Protocol; Complete Time: 12:37 sp3 07/28 11:57 Order name: O2 Sat Monitoring; Complete Time: 12:37 sp3 Administered Medications: No medications were administered Disposition Summary: 07/28/24 15:34 Discharge Ordered Notes: Location: Home sp3 Condition: Stable sp3 Diagnosis - Ptosis sp3 Followup: sp3 - With: Salomon Mckeon MD - When: Upon discharge from the Emergency Department - Reason: Recheck today's complaints Followup: sp3 - With: Leonard Griffin MD - When: Upon discharge from the Emergency Department - Reason: Recheck today's complaints Discharge Instructions: - Discharge Summary Sheet sp3 - Ptosis Repair sp3 Forms: - Medication Reconciliation Form sp3 - Antibiotic Education sp3 - Prescription Opioid Use sp3 - Patient Portal Instructions sp3 - Leadership Thank You Letter sp3 Signatures: Dispatcher [employer] EDMS Marlena Zapata RN RN Elias Cunningham MD MD sp3 Corrections: (The following items were deleted from the chart) 11:57 11:57 BASIC METABOLIC PANEL+C.LAB.BRZ ordered. EDMS EDMS 11:57 11:57 CBC+H.LAB.BRZ ordered. EDMS EDMS 11:57 11:57 HEPATIC FUNCTION+C.LAB.BRZ ordered. EDMS EDMS 11:57 11:57 Troponin High Sensitivity+C.LAB.BRZ ordered. EDMS EDMS 11:57 11:57 MAGNESIUM+C.LAB.BRZ ordered. EDMS EDMS 11:57 11:57 PROTIME (+INR)+COAG.LAB.BRZ ordered. EDMS EDMS 11:57 11:57 PTT, ACTIVATED+COAG.LAB.BRZ ordered. EDMS EDMS 11:57 11:57 Head Angio+CT.RAD.BRZ ordered. EDMS EDMS 11:58 11:58 Neck Angio+CT.RAD.BRZ ordered. EDMS EDMS 11:58 11:58 Chest Single View+RAD.RAD.BRZ ordered. EDMS EDMS 11:58 11:58 Head Brain Wo Cont+CT.RAD.BRZ ordered. EDMS EDMS
--- NOTE | 2024-07-28 15:35 | ER ---
Nurse's Notes [facility] Name: Frank Cueto Age: 68 yrs Sex: Male : 1955 Arrival Date: 07/28/2024 Time: 11:42 Bed 4 Private MD: Diagnosis: Ptosis Presentation: 07/28 11:45 Chief complaint: EMS states: Left periorbital swelling and pain x 1 month, worse over hb last week. Coronavirus screen: At this time, the client does not indicate any symptoms associated with coronavirus-19. Ebola Screen: No symptoms or risks identified at this time. Initial Sepsis Screen: Does the patient meet any 2 criteria? No. Patient's initial sepsis screen is negative. Does the patient have a suspected source of infection? No. Patient's initial sepsis screen is negative. Risk Assessment: Do you want to hurt yourself or someone else? Patient reports no desire to harm self or others. Onset of symptoms was June 2024. 11:45 Method Of Arrival: EMS: [facility] hb 11:45 Acuity: YOLANDA 3 hb 11:46 Chief complaint: Patient states: 1 MONTH LEFT EYE PAIN. bp Triage Assessment: 11:45 General: Appears in no apparent distress. Behavior is calm, cooperative. Pain: Pain hb currently is 2 out of 10 on a pain scale. EENT: left periorbital swelling noted. Reports pain since in left eye x 1 month. Neuro: Level of Consciousness is awake, alert, obeys commands, Oriented to person, place, time, situation. Cardiovascular: Patient's skin is warm and dry. Respiratory: Respiratory effort is even, unlabored, Respiratory pattern is regular, symmetrical. GI: No signs and/or symptoms were reported involving the gastrointestinal system. : No signs and/or symptoms were reported regarding the genitourinary system. Derm: Skin is pink, warm \T\ dry. Musculoskeletal: No signs and/or symptoms reported regarding the musculoskeletal system. Historical: - Allergies: 11:47 No Known Allergies; hb - PMHx: 11:47 diabetes mellitus; hb - PSHx: 11:47 Left BKA; hb - Immunization history:: Adult Immunizations up to date. - Infectious Disease History:: Denies. - Social history:: Smoking status: Patient/guardian denies using tobacco. Screenin:[facility] Fall Risk Assessment (Adult) History of falling in the last 3 months, hb including since admission No falls in past 3 months (0 pts) Confusion or Disorientation No (0 pts) Intoxicated or Sedated No (0 pts) Impaired Gait Yes (1 pt) Mobility Assist Device Used Yes (1 pt) Altered Elimination Yes (1 pt) Score/Fall Risk Level 3 or more points = High Risk Oriented to surroundings, Maintained a safe environment, Educated pt \T\ family on fall prevention, incl call for assistance when getting out of bed. Abuse screen: Denies threats or abuse. Denies injuries from another. Nutritional screening: No deficits noted. Tuberculosis screening: No symptoms or risk factors identified. Assessment: 12:50 General: See triage assessment . hb Vital Signs: 11:45 BP 157 / 77; Pulse 65; Resp 16; Temp 98.1(O); Pulse Ox 100% on R/A; Pain 2/10; hb 12:55 BP 147 / 93; Pulse 61; Resp 15; Pulse Ox 100% on R/A; hb 16:15 BP 151 / 89; Pulse 65; Resp 16; Pulse Ox 97% ; bp 11:45 Pain Scale: Adult hb ED Course: 11:44 Patient arrived in ED. bp 11:46 Triage completed. hb 11:48 Arm band placed on. hb 11:55 Elias Cunningham MD is Attending Physician. sp3 11:57 Dakota Valero, RN is Primary Nurse. bp 12:50 Patient has correct armband on for positive identification. Bed in low position. Call hb light in reach. Provided Education on: use of call light . 13:27 Initial lab(s) drawn, by me, sent to lab. Inserted saline lock: 20 gauge in left em1 forearm, using aseptic technique. Blood collected. Flushed with 10 mL NS. 13:33 Stroke CXR 1 View In Process Unspecified. EDMS 13:52 CT Head Brain wo Cont In Process Unspecified. EDMS 14:07 EKG done, by ED staff, reviewed by Elias Cunningham MD. hb 14:36 Accessed peripheral vein via ultrasound, utilizing dynamic ultrasound technique Clean \T\ hb dry. Dressing intact. Good blood return. Flushes easily. 20G RFA. 14:51 CT Head Angio In Process Unspecified. EDMS 14:51 CT Neck Angio In Process Unspecified. EDMS 15:33 Salomon Mckeon MD is Referral Physician. sp3 15:33 Lenoard Griffin MD is Referral Physician. sp3 16:15 No provider procedures requiring assistance completed. IV discontinued, intact, bp bleeding controlled, No redness/swelling at site. Pressure dressing applied. Administered Medications: No medications were administered Medication: 12:50 VIS not applicable for this client. hb Outcome: 15:34 Discharge ordered by MD. sp3 16:16 Discharged to home via wheelchair, with family, bp 16:16 Condition: stable 16:16 Discharge instructions given to patient, family, Instructed on discharge instructions, follow up and referral plans. Demonstrated understanding of instructions, follow-up care, 16:16 Patient left the ED. bp Signatures: Dispatcher [employer] EDDC Ramon Moreno em1 Marlena Zapata, RN RN hb Dakota Valero, RN RN bp Elias Cunningham MD MD sp3 Corrections: (The following items were deleted from the chart) 11:58 11:45 Acuity: YOLANDA 4 hb hb
[2024-07-28 16:52] VITALS: TEMP 98.1
[2024-07-28 16:55] VITALS: BP 151/89; O2SAT 97
--- NOTE | 2024-07-30 12:05 | EKG ---
Test Date: 2024-07-28 Test Time: 14:02:10 Shorthand Reporter: HB MEASUREMENT RESULTS: Intervals: Rate: 56 TN: 178 QRSD: 98 QT: 438 QTc: 422 [place]: P: 36 TN: 178 QRS: 27 T: 113 INTERPRETIVE STATEMENTS: Sinus bradycardia Nonspecific ST and T wave abnormality Abnormal ECG Compared to ECG 01/01/2024 08:20:38 ST (T wave) deviation now present Sinus rhythm no longer present Ventricular premature complex(es) no longer present Electronically Signed On 07-30-24 12:00:19 CDT by Leonardo Diaz
== END 2024-07-28 16:16 | disposition home or self-care (01) ==
LOC: ER 11:42
DX: H02.402 Unspecified ptosis of left eyelid (principal); H57.12 Ocular pain, left eye; E11.9 Type 2 diabetes mellitus without complications; Z89.512 Acquired absence of left leg below knee
CPT/HCPCS: 93005; 85025; 80048; 36415; 83735; 85610; 80076; 85730; 84484; 70450; 70496; 70498; 71045; 99284; Q9967

== ENCOUNTER 2024-08-20 07:47 | Emergency (ER) | payer OTHER ==
[2024-08-20] MEDS ORDERED: ACETAMINOPHEN 325 MG TABLET ONE (08:02)
--- NOTE | 2024-08-20 08:24 | RAD REPORT ---
EXAMINATION: ONE VIEW CHEST XR CLINICAL INDICATION: FEVER TECHNIQUE: Frontal chest projection is submitted. Examination is limited by patient positioning and t echnique. COMPARISON: 07/28/2024 FINDINGS: The lungs are well inflated and clear. The heart is normal in size. No displaced fractures identified . IMPRESSION: No acute intrathoracic abnormalities.
--- NOTE | 2024-08-20 08:26 | RAD REPORT ---
EXAM: CT brain without contrast HISTORY: fall, somnolence COMPARISON: 07/28/2024 TECHNIQUE: Multiple contiguous axial images were obtained and a CT of the brain without contrast. Sag ittal and coronal reformats were performed. One or more of the following dose reduction techniques were used: Automated exposure control, adjust ment of the mA and/or kV according to patient size, and/or iterative reconstruction. FINDINGS: No evidence of hydrocephalus, intracranial hemorrhage, or extra-axial fluid collection. Mild brain atrophy with mild periventricular and deep white matter chronic microvascular ischemic ch anges present. No evidence of midline shift or areas of brain edema. The calvarium is intact. The visualized paranasal sinuses and mastoid air cells are essentially clear . IMPRESSION: No evidence of acute intracranial abnormality.
[2024-08-20 09:12] LABS: Absolute Monocytes 0.8 K/uL (0.1-1.3); Absolute Neutrophil 4.2 K/uL (1.8-8.0); Basophils % 0.7 % (0-1.3); Eosinophils % 0.2 % (0-4.4); Hematocrit 32.8 % (39.6-49.0); Hemoglobin 11.9 g/dL (13.6-17.9); Lymphocytes % 17.2 % (15.3-44.8); MCH 29.9 pg (27.0-35.0); MCHC 36.3 g/dL (32.0-36.0); MCV 82.3 fL (80-100); MPV 8.1 fL (7.6-11.3); Monocytes % 12.4 % (3.3-12.3); Neutrophils % 69.5 % (41.7-73.7); Platelets 112 thou/uL (152-406); RBC Red Blood Cell Count 3.98 M/uL (4.33-5.43); Red Cell Distribution Width 14.6 % (12.1-15.2)
[2024-08-20 09:19] LABS: Anion Gap 9.4 mEq/L (5.0-15.0); Potassium 3.4 mEq/L (3.5-5.1)
[2024-08-20 10:03] LABS: Influenza A Ag Negative; Influenza B Ag Negative; SARS-CoV-2 Antigen Rapid Res Negative (Negative)
[2024-08-20 11:05] LABS: Specific Gravity 1.013 (1.005-1.030); Sqamous Epithelial None Seen /HPF (None Seen); Urine Bacteria >50 /HPF (<20); Urine Bilirubin NEGATIVE (Negative); Urine Blood 2+ (Negative); Urine Clarity Extremely Turbid (Clear); Urine Color Yellow (Yellow); Urine Glucose NEGATIVE (Negative); Urine Ketones NEGATIVE (Negative); Urine Microscopic Reflex YN ORDER UMIC; Urine Nitrite NEGATIVE (Negative); Urine Protein 2+ (Negative); Urine RBC <5 /HPF (None Seen); Urine Urobilinogen 1+ (Normal); Urine WBC >50 /HPF (<5)
--- NOTE | 2024-08-20 11:46 | ER ---
Nurse's Notes [facility] Name: Frank Cueto Age: 68 yrs Sex: Male : 1955 Arrival Date: 08/20/2024 Time: 07:47 Bed 19 Private MD: Diagnosis: UTI/ Urinary tract infection, site not specified;Muscle weakness (generalized) Presentation: 08/20 07:49 Chief complaint: EMS states: the patient had two falls yesterday and that the nursing ap3 home reported the patient has been increasingly weak over the last couple of days. patient denies hitting his head and has no complaints of pain. Coronavirus screen: Client presents with at least one sign or symptom that may indicate coronavirus-19. Ebola Screen: No symptoms or risks identified at this time. Initial Sepsis Screen: Does the patient meet any 2 criteria? Temp <36.0*C (96.8*F)) or > 38.3*C (100.9*F). Does the patient have a suspected source of infection? No. Patient's initial sepsis screen is negative. Risk Assessment: Do you want to hurt yourself or someone else? Patient reports no desire to harm self or others. Onset of symptoms is unknown. Transition of care: patient was received from another setting of care (long-term care facility), [facility]. 07:49 Method Of Arrival: EMS: [facility] ap3 07:49 Acuity: YOLANDA 3 ap3 Triage Assessment: 07:52 General: Appears in no apparent distress. Behavior is calm, cooperative, appropriate ap3 for age. General: Reports fever for fatigue for. Pain: Denies pain. Neuro: Level of Consciousness is awake, alert, obeys commands, Oriented to person, place, time, situation, Appropriate for age Reports weakness in generalized weakness. Cardiovascular: Patient's skin is warm and dry. Respiratory: Airway is patent Respiratory effort is even, unlabored, Respiratory pattern is regular, symmetrical. Historical: - Allergies: 07:50 No Known Allergies; ap3 - PMHx: 07:50 diabetes mellitus; Hypercholesterolemia; Hypertensive disorder; Gastroesophageal reflux ap3 disease; - PSHx: 07:50 Left BKA; ap3 - Immunization history:: Client reports receiving the 2nd dose of the Covid vaccine, Flu vaccine status is unknown. - Infectious Disease History:: Denies. - Social history:: Smoking status: Patient reports the use of cigarette tobacco products, smokes one-half pack cigarettes per day. - Family history:: not pertinent. - Hospitalizations: : No recent hospitalization is reported. Screenin:52 Abuse screen: Denies threats or abuse. Nutritional screening: No deficits noted. ap3 Tuberculosis screening: No symptoms or risk factors identified. 10:48 [facility] ED Fall Risk Assessment (Adult) History of falling in the last 3 months, ap3 including since admission Yes- fall prone (multiple falls) (3 pts) Confusion or Disorientation No (0 pts) Intoxicated or Sedated No (0 pts) Impaired Gait Yes (1 pt) Mobility Assist Device Used Yes (1 pt) Altered Elimination No (0 pt) Score/Fall Risk Level 3 or more points = High Risk Oriented to surroundings, Maintained a safe environment, Educated pt \T\ family on fall prevention, incl call for assistance when getting out of bed, Assessed \T\ reinforced patient's understanding of fall precautions, Provided non-skid footwear, Hourly rounding (assess needs \T\ fall precautionary measures) done, Implemented a Fall Risk Plan of Care, Offered frequent toileting (1:1 observation). Assessment: 12:22 General: called [facility] and gave report to Jyoti. ap3 Vital Signs: 07:49 BP 167 / 75; Pulse 81; Resp 18; Temp 101.3; Pulse Ox 97% on R/A; Weight 88.45 kg; ap3 Height 6 ft. 1 in. ; 09:00 BP 153 / 64; Pulse 73; Resp 17; Pulse Ox 98% on R/A; ap3 09:36 Temp 99.3(O); ap3 11:42 BP 149 / 72; Pulse 68; Resp 17; Pulse Ox 99% on R/A; ap3 07:49 Body Mass Index 25.73 (88.45 kg, 185.42 cm) ap3 ED Course: 07:48 Patient arrived in ED. ss 07:48 Jorge Gurrola MD is Attending Physician. rn 07:50 Triage completed. ap3 07:52 Arm band placed on right wrist. ap3 07:52 Patient has correct armband on for positive identification. Bed in low position. Call ap3 light in reach. Side rails up X2. Client placed on continuous cardiac and pulse oximetry monitoring. NIBP monitoring applied. patient monitor on. Pulse ox on. NIBP on. Door closed. Noise minimized. 07:53 Frances Brothers, RN is Primary Nurse. ap3 08:06 CT Head Brain wo Cont In Process Unspecified. EDMS 08:09 XRAY Chest (1 view) In Process Unspecified. EDMS 08:44 Missed attempt(s): 20 gauge in right forearm. ap3 10:48 Urinalysis w/ reflexes Sent. ap3 10:48 Straight cath inserted, using sterile technique, 14 Fr. Specimen obtained. Returned ap3 aubrey urine. Patient tolerated well. 10:49 Provided Education on: need for straight cath. ap3 12:23 No provider procedures requiring assistance completed. ap3 13:28 IV discontinued, intact, bleeding controlled, No redness/swelling at site. Pressure ss dressing applied. Administered Medications: 08:10 Drug: Acetaminophen PO 650 mg PO once Route: PO; ld1 10:48 Follow up: Response: No adverse reaction; Temperature is decreased ap3 12:16 Drug: Ciprofloxacin PO 500 mg PO once Route: PO; ap3 13:39 Follow up: Response: No adverse reaction ap3 Medication: 10:49 VIS not applicable for this client. ap3 Outcome: 11:46 Discharge ordered by . rn 13:28 Discharged to home ambulatory, 13:28 Condition: good 13:28 Discharge instructions given to patient, human resources operations manager, Instructed on discharge instructions, follow up and referral plans. medication usage, Demonstrated understanding of instructions, follow-up care, medications, Prescriptions given X 1, 13:29 Patient left the ED. ss Signatures: Dispatcher [employer] Jorge Costa MD MD rn Blanchard, Shelby, RN RN ss Frances Brothers RN RN ap3 Jannette Whatley RN RN ld1
--- NOTE | 2024-08-20 11:46 | EDPHYS ---
Physician Documentation [facility] Name: Frank Cueto Age: 68 yrs Sex: Male : 1955 Arrival Date: 08/20/2024 Time: 07:47 Bed 19 Private MD: ED Physician Jorge Gurrola HPI: 08/20 09:13 This 68 yrs old Male presents to ER via EMS with complaints of General rn Weakness. 09:13 EMS reports patient brought from [facility] for [facility] falls. No injuries from falls. rn Patient reports 2 days of generalized weakness and malaise. No cough or shortness of breath. No vomiting. No diarrhea. No new rash. No wounds. Denies any focal injury or pain following fall.. Historical: - Allergies: 07:50 No Known Allergies; ap3 - PMHx: 07:50 diabetes mellitus; Hypercholesterolemia; Hypertensive disorder; Gastroesophageal reflux ap3 disease; - PSHx: 07:50 Left BKA; ap3 - Immunization history:: Client reports receiving the 2nd dose of the Covid vaccine, Flu vaccine status is unknown. - Infectious Disease History:: Denies. - Social history:: Smoking status: Patient reports the use of cigarette tobacco products, smokes one-half pack cigarettes per day. - Family history:: not pertinent. - Hospitalizations: : No recent hospitalization is reported. ROS: 09:13 Constitutional: Negative for fever, chills, and weight loss, Neck: No midline cervical rn tenderness Cardiovascular: Negative for chest pain, palpitations, and edema, Respiratory: Negative for shortness of breath, cough, wheezing, and pleuritic chest pain, Abdomen/GI: Negative for abdominal pain, nausea, vomiting, diarrhea, and constipation, Back: Negative for injury and pain, MS/Extremity: Negative for injury and deformity, Neuro: Positive for generalized weakness and malaise. No seizure. No weakness or numbness Exam: 09:13 Constitutional: This is a well developed, well nourished patient who is awake, alert, rn and in no acute distress. Head/Face: Normocephalic, atraumatic. ENT: Dry mucous membranes Cardiovascular: Regular rate and rhythm. No pulse deficits. Respiratory: No increased work of breathing, no retractions or nasal flaring. Abdomen/GI: Soft, non-tender MS/ Extremity: Left BKA present without acute abnormality. No cyanosis. Lower extremities are cool. No extremity injury or pain Neuro: Awake and alert, GCS 15 Vital Signs: 07:49 BP 167 / 75; Pulse 81; Resp 18; Temp 101.3; Pulse Ox 97% on R/A; Weight 88.45 kg; ap3 Height 6 ft. 1 in. ; 09:00 BP 153 / 64; Pulse 73; Resp 17; Pulse Ox 98% on R/A; ap3 09:36 Temp 99.3(O); ap3 11:42 BP 149 / 72; Pulse 68; Resp 17; Pulse Ox 99% on R/A; ap3 07:49 Body Mass Index 25.73 (88.45 kg, 185.42 cm) ap3 MDM: 07:48 Medical Screening Exam initiated rn 11:44 Differential Diagnosis Fever, viral syndrome, urinary tract infection, dehydration, rn weakness. Data reviewed: vital signs, nurses notes, lab test result(s), radiologic studies, plain films, and as a result, I will discharge patient. Consideration of Admission/Observation Escalation of care including admission/observation considered. Admission considered but stable vital signs, no altered mental status, patient reports feels fine and does not want to be admitted. Will discharge home and treat as urinary tract infection.. Counseling: I had a detailed discussion with the patient and/or guardian regarding the historical points, exam findings, and any diagnostic results supporting the discharge/admit diagnosis, the need for outpatient follow up, to return to the emergency department if symptoms worsen or persist or if there are any questions or concerns that arise at home. Special discussion: I discussed with the patient/guardian in detail that at this point there is no indication for admission to the hospital. It is understood, however, that if the symptoms persist or worsen the patient needs to return immediately for re-evaluation. 08/20 07:50 Order name: CBC with Diff; Complete Time: 09:16 rn 08/20 07:50 Order name: Basic Metabolic Panel; Complete Time: 09:23 rn 08/20 07:50 Order name: Urinalysis w/ reflexes; Complete Time: 11:10 rn 08/20 07:50 Order name: COVID-19 Ag + Flu A+B Ag; Complete Time: 10:14 rn 08/20 07:50 Order name: XRAY Chest (1 view); Complete Time: 08:26 rn 08/20 07:50 Order name: CT Head Brain wo Cont; Complete Time: 08:26 rn 08/20 07:50 Order name: IV Start; Complete Time: 09:01 rn Administered Medications: 08:10 Drug: Acetaminophen PO 650 mg PO once Route: PO; ld1 10:48 Follow up: Response: No adverse reaction; Temperature is decreased ap3 12:16 Drug: Ciprofloxacin PO 500 mg PO once Route: PO; ap3 13:39 Follow up: Response: No adverse reaction ap3 Disposition Summary: 08/20/24 11:46 Discharge Ordered Notes: Location: Home rn Problem: new rn Symptoms: have improved rn Condition: Stable rn Diagnosis - UTI/ Urinary tract infection, site not specified rn - Muscle weakness (generalized) rn Followup: rn - With: Private Physician - When: As needed - Reason: Recheck today's complaints, Re-evaluation by your physician Discharge Instructions: - Discharge Summary Sheet rn - Urinary Tract Infection, Adult rn - Weakness rn Forms: - Medication Reconciliation Form rn - Antibiotic clipper and turner - Prescription Opioid Use rn - Patient Portal Instructions rn - Leadership Thank You Letter rn Prescriptions: - Cipro 500 mg Oral tablet - take 1 tablet ORAL route every 12 hours for 10 days; 20 tablet; Refills: 0, rn Product Selection Permitted Signatures: Dispatcher [employer] EVERARDOPR Jorge Gurrola MD MD rn Prokisch, Amanda, RN RN ap3 Jannette Whatley RN RN ld1 Corrections: (The following items were deleted from the chart) 07:51 07:51 Head Brain Wo [id number] ordered. [facility] EDPR 09:15 09:13 Constitutional: This is a well developed, well nourished patient who is awake, rn alert, and in no acute distress. Head/Face: Normocephalic, atraumatic. ENT: Dry mucous membranes Cardiovascular: Regular rate and rhythm. No pulse deficits. Respiratory: No increased work of breathing, no retractions or nasal flaring. Abdomen/GI: Soft, non-tender MS/ Extremity: Left AKA present without acute abnormality. No cyanosis. Lower extremities are cool. No extremity injury or pain Neuro: Awake and alert, GCS 15 rn
[2024-08-20] MEDS ORDERED: CIPROFLOXACIN HCL 500 MG TAB ONE (12:12)
[2024-08-20 13:49] VITALS: TEMP 99.3
[2024-08-20 13:50] VITALS: BP 149/72; O2SAT 99
== END 2024-08-20 13:29 | disposition home or self-care (01) ==
LOC: ER 07:47
DX: N39.0 Urinary tract infection, site not specified (principal); M62.81 Muscle weakness (generalized); E11.9 Type 2 diabetes mellitus without complications; I10 Essential (primary) hypertension; F17.210 Nicotine dependence, cigarettes, uncomplicated; Z11.52 Encounter for screening for COVID-19; Z89.512 Acquired absence of left leg below knee
CPT/HCPCS: 36415; 51702; 70450; 71045; 80048; 81001; 85025; 87428; 99285